=== PATIENT | female | born 1950 | race Caucasian/White ===

== ENCOUNTER 2016-08-03 12:30 | Day surgery (SDC) | payer MEDICARE, BC, OTHER ==
[2016-07-30 15:12] LABS: BASOPHILS 1.2 %; BASOPHILS ABSOLUTE 0.05 10/3/uL (0.0-0.16); EOSINOPHILS 3.2 %; EOSINOPHILS ABSOLUTE 0.14 10/3/uL (0.0-0.53); HEMATOCRIT 40.7 % (36.0-48.0); HEMOGLOBIN 13.4 g/dL (12.0-16.0); IMMATURE GRANULOCYTES 0.2 %; IMMATURE GRANULOCYTES ABSOLUTE 0.01 10/3/uL (0.0-0.11); LYMPHOCYTES 33.4 %; LYMPHOCYTES ABSOLUTE 1.45 10/3/uL (0.67-4.30); MEAN CORPUS HGB CONC 32.9 g/dL (32.0-36.0); MEAN CORPUSCULAR VOLUME 88.1 fL (80-100); MEAN PLATELET VOLUME 10.9 fL (9.2-13.0); MONOCYTES 8.8 %; MONOCYTES ABSOLUTE 0.38 10/3/uL (0.21-1.20); NEUTROPHILS 53.2 %; NEUTROPHILS ABSOLUTE 2.31 10/3/uL (2.02-8.40); PLATELET COUNT 223 10/3/uL (150-400); RBC DISTRIBUTION WIDTH 13.9 % (12.0-16.0); RED CELL COUNT 4.62 10/6/uL (4.0-5.6); WHITE BLOOD CELLS 4.3 10/3/uL (4.5-10.5)
[2016-07-30 15:13] LABS: MANUAL DIFF NO %
[2016-07-30 15:52] LABS: BUN (BLOOD UREA NITROGEN) 14 MG/DL (6-23); CA 125 II 9.6 U/ML (< 35.0); CHLORIDE, SERUM 109 MMOL/L (96-112); CO2 (CARBON DIOXIDE) 26 MMOL/L (24-34); CREATININE 0.77 MG/DL (0.55-1.02); GFR AFRICAN AMERICAN 93 ML/MIN (>=60); GFR NON AFRICAN AMERICAN 80 ML/MIN (>=60); GLUCOSE, SERUM 82 MG/DL (60-99); POTASSIUM, SERUM 4.3 MMOL/L (3.5-5.3); SODIUM, SERUM 143 MMOL/L (135-148)
--- NOTE | ~2016-08-03 | OP ---
Record Of Operation [facility] [address] [place]. [address] NAME: GUANACO PAREDES OCT[birth year] : [birth year] STATUS : [facility]#: [id number] AGE: 66 ADM/REG DATE : 08/03/16 MR#: [id number] REPORT SERV DATE: 08/03/16 DICTATED BY: STAN LOWERY DATE: 08/03/16 REPORT STATUS : Draft TRANSCRIBED BY: MODL DATE: 08/03/16 DATE OF PROCEDURE: 08/03/2016 PREOPERATIVE DIAGNOSIS: Ovarian cyst. POSTOPERATIVE DIAGNOSIS: Benign right ovarian cyst. PROCEDURE: Laparoscopic bilateral salpingo-oophorectomy via the da Desiree laparoscopic robotic instrument, CPT code 83658. SURGEON: Stan Lowery M.D. INSECTICIDE SPRAYER: Anabelle. ESTIMATED BLOOD LOSS: 20 mL. COMPLICATIONS: None. FINDINGS AND INDICATIONS: This is a 66-year-old female who presents with an ovarian cyst and a normal CA-125 at 9. She was taken to the operating room for removal of the ovarian cyst. She was noted to have a right ovarian cyst that was not adherent. It was removed intact, examined on the back table, and appeared to be benign. The contralateral ovary was also removed and also was benign. Postprocedure, a cystoscopy was performed with excellent bilateral ureteral jets. No evidence of bladder defect. Prior to the induction of anesthesia, the patient was treated with Lovenox for DVT prophylaxis. She was also given prophylactic antibiotics. DESCRIPTION OF PROCEDURE: The patient was taken to the operating room. She was placed in supine position for administration of general anesthesia. She was then placed in dorsal lithotomy position and prepped and draped in the usual sterile fashion. An incision was made approximately 25 cm above the pubic symphysis and taken down to the underlying layer of fascia. The fascia was grasped with two sutures of 0 Vicryl, tented up, and entered sharply. The perineum was then tented up and entered sharply, and a laparoscopic trocar was placed under direct visualization. The abdominal cavity was insufflated with CO2. Two additional 8 mm trocars were placed, one additional 12 mm trocar was placed, all under direct visualization. The patient was then docked to the laparoscopic robotic instrument and the remainder of the procedure was performed via da Desiree, the above findings were noted. Pelvic washings were obtained. The retroperitoneal spaces were opened via the round ligaments, which were grasped with bipolar cautery, cauterized and transected bilaterally. The gonadal vessels were isolated. Hemoclips were placed to ensure long-term hemostasis. They were then coagulated and transected bilaterally. The uterine artery remnants were also identified and Hemoclips were placed to ensure long-term hemostasis. Both ovaries were placed into an EndoCatch bag and delivered to the surface. The accessory trocar site was extended minimally as so they could be removed intact. They were examined on the back table with the above findings noted. The laparoscopic instruments were then removed. The fascia from the initial incision as well as accessory port were closed with 0 Vicryl at the fascia. Record Of Operation [address] [place]. [address] NAME: GUANACO PAREDES OCTOB[birth year] : [birth year] STATUS : [facility] PAT#: [id number] AGE: 66 ADM/REG DATE : 08/03/16 MR#: [id number] REPORT SERV DATE: 08/03/16 DICTATED BY: STAN LOWERY DATE: 08/03/16 REPORT STATUS : Draft TRANSCRIBED BY: VIJAYA DATE: 08/03/16 The skin sites were closed with 4-0 Monocryl and Dermabond was placed. Postprocedure, a cystoscopy was performed with excellent bilateral ureteral jets. No evidence of bladder defect. At the completion of the procedure, the anesthesia was reversed. She was extubated and taken to the recovery room in stable condition. BALJIT/MODL Stan Lowery M.D. / [id number] CC: Mile Talbert M.D.
[~2016-08-03 12:30] MED LIST: LIPITOR10 PO; METHOC500B PO; PRESERVISION A1 EAC1 PO; PRILOSEC40 MG PO; REFRES1 OPH; SYNTHROID175 MCG PO; TIAZAC PO; VITAMIN D31000 UNIT PO; VOLT50 PO; ZOL100 PO
== END 2016-08-03 20:10 | disposition home or self-care (01) ==
LOC: SDC 12:30
PROVIDERS: Obstetrics & Gynecology Gynecologic Oncology
PROC: 0UT24ZZ Resection of Bilateral Ovaries, Percutaneous Endoscopic Approach (ICD-10-PCS; principal; 2016-08-03 15:00)
PROC: 0UT74ZZ Resection of Bilateral Fallopian Tubes, Percutaneous Endoscopic Approach (ICD-10-PCS; 2016-08-03 15:00)
DX: D27.0 Benign neoplasm of right ovary (principal); N83.8 Other noninflammatory disorders of ovary, fallopian tube and broad ligament; E03.9 Hypothyroidism, unspecified; K21.9 Gastro-esophageal reflux disease without esophagitis; I10 Essential (primary) hypertension; E78.00 Pure hypercholesterolemia, unspecified; M19.90 Unspecified osteoarthritis, unspecified site; F32.9 Major depressive disorder, single episode, unspecified; G43.909 Migraine, unspecified, not intractable, without status migrainosus; G47.33 Obstructive sleep apnea (adult) (pediatric); Z88.2 Allergy status to sulfonamides; Z91.040 Latex allergy status; Z90.710 Acquired absence of both cervix and uterus
CPT/HCPCS: 36415; 71020; 80048; 85025; 86304; 86850; 86900; 86901; 88112; 88305; 93005; A9270-GY; J0694; J2250; J2405; J2795; J3010; Q9968